=== PATIENT | female | born 1980 | race Caucasian/White ===

== ENCOUNTER 2018-01-04 09:55 | Emergency (ER) | payer MEDICAID ==
[~2018-01-04] VITALS: Ht 175.3 cm; Wt 84.4 kg
[~2018-01-04 09:55] MED LIST: PREN-385 PO
[2018-01-04 10:24] VITALS: BP 117/77
--- NOTE | 2018-01-04 12:04 | NUR ---
NO ANSWER IN ER LOBBY
== END 2018-01-04 12:04 | disposition left against medical advice (07) ==
LOC: MED 09:55
DX: J02.9 Acute pharyngitis, unspecified (principal); Z53.21 Procedure and treatment not carried out due to patient leaving prior to being seen by health care provider